=== PATIENT | male | born 1955 | race Two or more races ===

== ENCOUNTER → 2024-04-18 | Outpatient (BNVA) | payer OTHER, SELFPAY | END | disposition home or self-care (01) | PROVIDERS: PCP Nurse Practitioner Family; Referring Provider Nurse Practitioner Family; Visit Provider Urology | DX: N40.1 Benign prostatic hyperplasia with lower urinary tract symptoms (principal); N13.8 Other obstructive and reflux uropathy; N35.911 Unspecified urethral stricture, male, meatal; E11.9 Type 2 diabetes mellitus without complications; I10 Essential (primary) hypertension; E66.9 Obesity, unspecified; Z68.30 Body mass index [BMI] 30.0-30.9, adult; E78.00 Pure hypercholesterolemia, unspecified | CPT/HCPCS: 81003; 99212; G0463 ==

== ENCOUNTER → 2024-05-29 | Outpatient (BNVA) | payer OTHER, SELFPAY | END | disposition home or self-care (01) | PROVIDERS: PCP Nurse Practitioner Family; Referring Provider Nurse Practitioner Family; Visit Provider Urology | DX: N40.1 Benign prostatic hyperplasia with lower urinary tract symptoms (principal); R39.12 Poor urinary stream; I10 Essential (primary) hypertension; E11.9 Type 2 diabetes mellitus without complications; E78.00 Pure hypercholesterolemia, unspecified; Z87.891 Personal history of nicotine dependence | CPT/HCPCS: 51741; 51798 ==

== ENCOUNTER → 2024-06-16 | Outpatient (BNVA) | payer OTHER, MEDICAID, SELFPAY | END | disposition home or self-care (01) | PROVIDERS: PCP Nurse Practitioner Family; Referring Provider Nurse Practitioner Family; Visit Provider Urology | DX: N40.1 Benign prostatic hyperplasia with lower urinary tract symptoms (principal); N13.8 Other obstructive and reflux uropathy; I10 Essential (primary) hypertension; E78.00 Pure hypercholesterolemia, unspecified; G47.30 Sleep apnea, unspecified; E11.9 Type 2 diabetes mellitus without complications | CPT/HCPCS: 76872 ==

== ENCOUNTER → 2024-06-20 | Outpatient (BNVA) | payer OTHER, MEDICAID, SELFPAY | END | disposition home or self-care (01) | PROVIDERS: PCP Nurse Practitioner Family; Referring Provider Nurse Practitioner Family; Visit Provider Student in an Organized Health Care Education/Training Program | DX: Z76.89 Persons encountering health services in other specified circumstances (principal) | CPT/HCPCS: 99212; G0463 ==

== ENCOUNTER → 2024-07-11 | Outpatient (BNVA) | payer OTHER, MEDICAID, SELFPAY | END | disposition home or self-care (01) | PROVIDERS: PCP Nurse Practitioner Family; Referring Provider Nurse Practitioner Family; Visit Provider Urology | DX: N40.1 Benign prostatic hyperplasia with lower urinary tract symptoms (principal); N13.8 Other obstructive and reflux uropathy; N35.919 Unspecified urethral stricture, male, unspecified site; N32.89 Other specified disorders of bladder; I10 Essential (primary) hypertension; E78.00 Pure hypercholesterolemia, unspecified; E11.9 Type 2 diabetes mellitus without complications; Z87.891 Personal history of nicotine dependence | CPT/HCPCS: 52281; 81003; 96372; A4217; A4649; C1894; J1580; A9270 ==

== ENCOUNTER → 2024-09-10 | Outpatient (BNVA) | payer OTHER, MEDICAID, SELFPAY | END | disposition home or self-care (01) | PROVIDERS: PCP Nurse Practitioner Family; Referring Provider Nurse Practitioner Family; Visit Provider Student in an Organized Health Care Education/Training Program | DX: N40.1 Benign prostatic hyperplasia with lower urinary tract symptoms (principal); R39.198 Other difficulties with micturition; E11.9 Type 2 diabetes mellitus without complications; I10 Essential (primary) hypertension; E78.00 Pure hypercholesterolemia, unspecified | CPT/HCPCS: 99212; G0463 ==

== ENCOUNTER 2024-10-02 11:37 | Emergency (ER) | payer OTHER, MEDICAID, SELFPAY ==
[2024-10-02 11:42] VITALS: BP 159/88; PULSE 110; RESP 15; TEMP 36.4; O2SAT 99; BMI 30.2
[2024-10-02 11:49] VITALS: BP 144/93; PULSE 104; RESP 15; TEMP 36.6; O2SAT 98
[2024-10-02 11:50] VITALS: PULSE 110; O2SAT 96; BMI 30.2
--- NOTE | 2024-10-02 11:54 | XR_ITS ---
Examination: Ribs, left, with PA chest, 5 views Technique: Chest PA, RIBS AP, RPO, LPO, AP coned lower ribs 5 views Exam date and time: October 02, 2024 1210 hours INDICATIONS: Patient fell today with injury to the left chest, left rib pain Findings: Normal heart size No pneumothorax Mild osteopenia Suspicious for nondisplaced fracture left 10th rib posterior laterally IMPRESSION: No pneumothorax Suspicious for nondisplaced fracture left 10th rib posteriorly
--- NOTE | 2024-10-02 11:54 | EKG_ITS ---
[facility] Test Date: 2024-10-02 Pat Name: SHEILA GOTTI Department: Room: - Gender: Male Photography Intern: : [id number] Requested By: Anjel Jerez Order Number: [id number] Reading MD: Anjel Jerez Measurements Intervals [place] Rate: 104 P: 33 [place]: 148 QRS: 265 QRSD: 149 T: 4 QT: 371 QTc: 490 Interpretive Statements SINUS TACHYCARDIA RIGHT AXIS DEVIATION [QRS AXIS > 100] RIGHT BUNDLE BRANCH BLOCK [120+ ms QRS DURATION, UPRIGHT V1, 40+ ms S IN I/aVL/V4/V5/V6] Compared to ECG 08/21/2023 10:05:34 Right-axis deviation now present Sinus rhythm no longer present Left anterior fascicular block no longer present /store/S0/[id number].pdf
--- NOTE | 2024-10-02 11:55 | PD.EDADULT ---
ED General RME/HPI General Chief complaint: General Adult/Misc Complain Stated complaint: LEFT RIB PAIN Time Seen by Provider: 10/02/24 11:49 Arrival date/time: 10/02/24 11:37 RME / HPI RME / HPI narrative: 69-year-old male patient with significant history of hypertension diabetes mellitus, was sent to us by PCP for evaluation regarding left-sided chest pain. Onset of symptoms about 2 days ago, patient was lifting something, and suddenly felt a popping sound to the left side of the chest. Since then its patient's been having pain, severity moderate. Patient denies any shortness of breath. Denies any cough. Denies any other complaints. Patient was given IV Tylenol on the way to the emergency room. Related Data Home Medications ?Medication ?Instructions ?Recorded ?Confirmed atorvastatin 20 mg tablet 20 mg PO QDAY 07/19/20 09/10/24 insulin glargine 100 unit/mL (3 20 unit subcut DAILY 07/19/20 09/10/24 mL) subcutaneous pen ([employer]lar KwikPen U-100 Insulin) metformin 500 mg tablet 500 mg PO BID 07/19/20 09/10/24 pregabalin 200 mg capsule 200 mg PO BID 07/19/20 09/10/24 carvedilol 3.125 mg tablet (Coreg) 3.125 mg PO BID 03/21/22 09/10/24 amitriptyline 50 mg tablet 50 mg PO HS 07/24/22 09/10/24 aspirin 81 mg tablet,delayed 81 mg PO QDAY 08/21/23 09/10/24 release dulaglutide 4.5 mg/0.5 mL 4.5 mg subcut QWEEK 08/21/23 09/10/24 subcutaneous pen injector (Trulicity) lisinopril 2.5 mg tablet 2.5 mg PO QDAY 08/21/23 09/10/24 clotrimazole-betamethasone 1 1 applic topical BID 04/18/24 09/10/24 %-0.05 % topical cream Previous Rx's ?Medication ?Instructions ?Recorded tamsulosin 0.4 mg capsule 0.4 mg PO QDAY #90 caps 07/20/20 acetaminophen 300 mg-codeine 30 mg 1 tab PO BID PRN pain #14 tabs 07/31/25 tablet lidocaine 5 % topical patch See Rx Instructions topical 10/02/24 .COMPLEX #15 ea Allergies Allergy/AdvReac Type Severity Reaction Status Date / Time No Known Allergies Allergy Verified 10/02/24 11:59 Review of Systems Review of Systems Narrative Review of Systems: Review of system reviewed and within normal limits except mentioned in HPI ED Exam Narrative Physical exam: VITAL SIGNS: Reviewed. GENERAL APPEARANCE: Alert and interactive, follows commands, no acute distress, HEAD AND FACE: Non-traumatic. ENT: PERRL, pink conjunctivitis, eyelid no trauma, Mucous membrane moist. NECK: Supple, nontender, no nuchal rigidity. CHEST: + left-sided tenderness, no crepitus, no paradoxical movement, no retractions. LUNGS: Clear, well ventilated, symmetric, no rales, no wheezing, no ronchi, no stridor, good breath sounds bilaterally. HEART: Regular rate, regular rhythm, no murmur, no gallops. ABDOMEN: Soft, positive bowel sounds, nondistended, no guarding, nontender, no rebound, no masses, RECTAL: Deferred. GENITAL: Deferred. NEUROLOGICAL: Gross motor function intact sensory function intact, Appropriate for age. MUSCULOSKELETAL: low back nontender, full range of motion. EXTREMITIES: Nontender, full range of motion. SKIN: Color pink, dry, no rash, no lacerations, no abrasions, no contusions. LYMPHATICS: Deferred. Course Quality Measures none Orders Category Date Time Status EKG (ED ONLY) *Do not use* NOW Care 10/02/24 11:55 Completed Incentive Spirometry Treatment NOW Care 10/02/24 13:17 Active EKG (ED Only) Stat Exams 10/02/24 11:54 Draft XR ribs LT min 3V w CXR1V Stat Exams 10/02/24 11:54 Completed B-Type Natriuretic Peptide Stat Lab 10/02/24 12:29 Completed CBC Stat Lab 10/02/24 12:29 Completed Comprehensive Metabolic Panel Stat Lab 10/02/24 12:29 Completed Partial Thromboplastin Time Stat Lab 10/02/24 12:29 Completed Prothrombin Time with INR Stat Lab 10/02/24 12:29 Completed Troponin I Stat Lab 10/02/24 12:29 Completed Lidocaine 5% Patch Med 10/02/24 13:17 Discontinued 1 patch TOP X1 ONE Vital Signs Vital signs: Vital Signs Temperature 97.5 F 10/02/24 11:42 Pulse Rate 110 H 10/02/24 11:42 Respiratory Rate 15 10/02/24 11:42 Blood Pressure 159/88 H 10/02/24 11:42 Pulse Oximetry (%) 99 10/02/24 11:42 Oxygen Delivery Method Room Air 10/02/24 11:42 Discharge Plan Plan Patient Disposition: HOME (Self Care) Discharge Disposition comment: Stable Prescriptions/Referrals Prescriptions/Med Rec: New lidocaine 5 % adhesive patch,medicated See Rx Instructions .ROUTE .COMPLEX Qty: 15 0RF Rx Instructions: leave on most painful area for up to 12 hrs acetaminophen-codeine 300-30 mg tablet 1 tab PO BID PRN (Reason: pain) Qty: 14 0RF No Action amitriptyline 50 mg tablet 50 mg PO HS clotrimazole-betamethasone 1-0.05 % cream 1 applic topical BID metformin 500 mg Tablet 500 mg PO BID atorvastatin 20 mg Tablet 20 mg PO QDAY pregabalin 200 mg Capsule 200 mg PO BID insulin glargine [Basaglar KwikPen U-100 Insulin] 100 unit/mL (3 mL) Insulin Pen 20 unit SUBCUT DAILY tamsulosin 0.4 mg capsule 0.4 mg PO QDAY Qty: 90 0RF aspirin 81 mg tablet,delayed release (DR/EC) 81 mg PO QDAY Patient Comments: TAKE 1 TABLET EVERY DAY BY ORAL ROUTE IN THE MORNING FOR 90 DAYS, FOR CORONARY ARTERIOSCLEROSIS. lisinopril 2.5 mg tablet 2.5 mg PO QDAY Patient Comments: TAKE 1 TABLET BY MOUTH EVERY MORNING FOR HIGH BLOOD PRESSURE Trulicity 4.5 mg/0.5 mL pen injector 4.5 mg SUBCUT QWEEK Patient Comments: INJECT 4.5 MG EVERY WEEK BY SUBCUTANEOUS ROUTE DIRECTED Rx Instructions: ON MONDAYS carvedilol [Coreg] 3.125 mg Tablet 3.125 mg PO BID Rx Instructions: must administer with a meal/food Referrals: Elvira Sarmiento NP [Primary Care Provider] - In 1 week Problem List Clinical Impression: Closed rib fracture Patient/Caregiver Discharge Instructions Education Materials: [facility] [employer] [facility] Additional Instructions: Thank you for the opportunity for serving you today. You are stable for discharged . You are advised to: Follow-up with your PCP in 1 to 2 days Return to ED for worsening of symptoms Increase oral fluids Take medication as prescribed Continue doing incentive spirometry as instructed Print Language: Citizen Of [place] Stand Alone Forms: Tamera Award Info., Patient Portal Info Letter JEROMY/ADIS Supervising Physician ASHLEY Supervising Physician: MD Salome [facility] Narrative [facility] hospital course: 69-year-old male patient with significant history of hypertension diabetes mellitus, was sent to us by PCP for evaluation regarding left-sided chest pain. Onset of symptoms about 2 days ago, patient was lifting something, and suddenly felt a popping sound to the left side of the chest. Since then its patient's been having pain, severity moderate. Patient denies any shortness of breath. Denies any cough. Denies any other complaints. Patient was given IV Tylenol on the way to the emergency room. EKG as interpreted by me showed sinus tachycardia, ventricular rate of 104 bpm, no ST segment elevation or depression noted. Patient's workup today including troponin, came back normal. Chest x-ray showed nondisplaced fracture of the 10th rib on the left no pneumothorax noted. Results discussed with the patient. Incentive spirometry was started in the emergency room. Patient is satting 98% on room air. Patient stable for discharge home. Medication Administration(s) Medication Administration History Discontinued Medications Lidocaine (Lidocaine 5% 1 Patch) 1 patch TOP X1 ONE Stop: 10/02/24 13:18 Diagnosis Differential dx and/or dx ruled out: Pneumothorax, chest pain, rib fracture Most likely dx, and/or detailed dx discussion: Rib fracture Dispositon Disposition: Discharge Home
[2024-10-02 12:41] LABS: Basophils # (Auto) 0.1 Thou/mm3 (0.0-0.2); Basophils % (Auto) 1 % (0-2.5); Eosinophils # (Auto) 0.0 Thou/mm3 (0.0-0.5); Eosinophils % (Auto) 0 % (0-10); Hematocrit 49.6 % (41.0-53.0); Hemoglobin 17.1 g/dL (13.5-16.0); Immature Granulocytes Auto 0.01 Thou/mm3 (0.00-0.00); Lymphocytes # (Auto) 2.3 Thou/mm3 (1.0-4.8); Lymphocytes % (Auto) 25 % (10-50); Mean Corpuscular HGB Conc 34.5 g/dl (31.0-37.0); Mean Corpuscular Hemoglobin 30.0 pg (25.0-35.0); Mean Corpuscular Volume 87 fL (80-100); Monocytes # (Auto) 0.5 Thou/mm3 (0.0-0.8); Monocytes % (Auto) 5 % (0-12); Neutrophils # (Auto) 6.3 Thou/mm3 (1.8-7.7); Neutrophils % (Auto) 69 % (37-80); Nucleated Red Blood Cell # 0.00 Thou/mm3 (0.00-0.00); Nucleated Red Blood Cell % 0 /100 WBC (0); Platelet Count 245 Thou/mm3 (140-440); RDW Standard Deviation 42.1 fL (35.1-43.9); Red Blood Count 5.70 Miln/mm3 (4.50-5.90); White Blood Count 9.1 Thou/mm3 (3.8-10.6)
[2024-10-02 12:58] LABS: B-Type Natriuretic Peptide < 20 pg/mL (0-100)
[2024-10-02 13:00] LABS: INR 1.1 (0.9-1.3); Partial Thromboplastin Time 27.1 Seconds (22.0-36.0); Prothrombin Time 12.1 Seconds (9.0-12.2)
[2024-10-02 13:02] LABS: Alanine Aminotransferase 22 U/L (10-49); Albumin, Serum 4.9 gm/dL (3.4-4.8); Albumin/Globulin Ratio 1.6 (1.2-2.2); Alkaline Phosphatase 129 U/L (46-116); Anion Gap 10 (7-16); Aspartate Amino Transferase 23 U/L (0-34); BUN/Creatinine Ratio 12 Ratio (12-20); Bilirubin,Total 1.0 mg/dL (0.3-1.2); Blood Urea Nitrogen 16 mg/dL (9-23); Calcium 9.9 mg/dL (8.3-10.6); Calcium (Corrected) 9.9 mg/dL (8.5-10.1); Carbon Dioxide 22.1 mMol/L (20.0-31.0); Chloride 104 mMol/L (98-107); Creatinine (Component) 1.3 mg/dL (0.6-1.3); Estimated Creatinine Clearance 65.0 mL/min (>60); Globulin 3.0 gm/dL (2.3-3.5); Glucose 197 mg/dL (74-106); Osmolality,Calculated 278 (275-295); Potassium 4.2 mMol/L (3.4-5.1); Sodium 136 mMol/L (136-145); Total Protein 7.9 gm/dL (5.7-8.2); Troponin I < 0.020 ng/mL (0.0-0.045); eGFR 60 See Note
[2024-10-02] MEDS: LIDOCAINE 5% 1 PATCH TOP (13:39)
== END 2024-10-02 13:47 | disposition home or self-care (01) ==
PROVIDERS: Nurse Practitioner Family; Emergency Provider Family Medicine; PCP Nurse Practitioner Family
DX: S22.32XA Fracture of one rib, left side, initial encounter for closed fracture (principal); I45.10 Unspecified right bundle-branch block; X50.9XXA Other and unspecified overexertion or strenuous movements or postures, initial encounter
CPT/HCPCS: 36415; 71101; 80053; 81001; 83880; 84484; 85025; 85610; 85730; 93005; 99283; J3490